=== PATIENT | male | born 1995 | race Caucasian/White ===

== ENCOUNTER → 2024-08-21 | Outpatient (CLI) | payer OTHER, SELFPAY ==
[2024-08-21 10:21] LABS: Absolute Lymphocyte Count 3.04 X10^3/uL (0.83-4.51); Absolute Neutrophil Count 4.6 X10^3/uL (2.0-7.7); Basophil# 0.05 X10^3/uL; Basophil% 0.6 % (0-1); Eosinophil# 0.19 X10^3/uL; Eosinophils% 2.3 % (0-5); Hematocrit 41.4 % (40-54); Hemoglobin 14.1 g/dL (13.0-16.5); Lymphocyte # 3.04 X10^3/ul (0.83-4.51); Lymphocyte % 36.5 % (19-41); Mean Corp Hgb Conc 34.1 g/dL (32-36); Mean Corpuscular Hgb 29.1 pg (27.0-32.0); Mean Corpuscular Volume 85.4 fL (80-94); Mean Platelet Vol. 10.6 fl (6.2-12.0); Monocyte# 0.45 X10^3/uL; Monocyte% 5.4 % (0-10); NRBC Flagged by Analyzer 0 % (0-5); Neutrophil # 4.58 X10^3/uL (2.7-7.7); Platelet Count 280 K/mm3 (150-450); RBC Distribution Width CV 12.2 % (11.6-14.6); RET-HE 32.9 pg (30-35); Red Blood Count 4.85 M/mm3 (4.6-6.2); Reticulocyte Count 1.52 % (0.5-1.5); White Blood Count 8.3 K/mm3 (4.4-11.0)
[2024-08-21 10:27] LABS: Erythrocyte Sedimentation Rate 3 mm/hr (0-20)
[2024-08-21 11:01] LABS: Vitamin B12 748 pg/mL (211-911); Vitamin D,25 Hydroxy 13.2 ng/mL
[2024-08-21 11:17] LABS: CRP < 2.90 mg/L (0.0-3.0); Iron 81 ug/dL (65-175); Iron Binding Capacity,Total 388 ug/dL (250-450); LDH 165 U/L (87-241)
[2024-08-26 19:07] LABS: ACCA 6 units (0-90); ALCA 27 units (0-60); AMCA 11 units (0-100); Albumin 4.3 g/dL (2.9-4.4); Alpha-1-Globulins 0.3 g/dL (0.0-0.4); Alpha-2-Globulins 0.8 g/dL (0.4-1.0); Angiotensin Convert Enzyme 39 U/L (14-82); Anti-Smooth Muscle ABS 6 Units (0-19); Cytoplasmic Ab (C-ANCA) <1:20 titer (Neg:<1:20); Endomysial Antibody IgA Negative (Negative); Gamma Globulin 1.2 g/dL (0.4-1.8); HEPATITIS B SURFACE AG Negative (Negative); Hep C Antibodies Non Reactive (Non Reactive); Hepatitis A IgM Antibody Negative (Negative); Hepatitis B Core AB IgM Negative (Negative); Immunoglobulin A 292 mg/dL (90-386); Immunoglobulin E 132 IU/mL (6-495); Immunoglobulin G 1118 mg/dL (603-1613); Immunoglobulin M 104 mg/dL (20-172); PROEL- TOTAL PROTEIN 7.9 g/dL (6.0-8.5); Perinuclear Ab (P-ANCA) <1:20 titer (Neg:<1:20); QNTFERON TB Mitogen Value > 10.00 IU/mL (.); QNTFERON TB Nil Value 0 IU/mL (.); QNTFERON TB1+ Ag Value 0 IU/mL (.); QNTFERON TB2+ Ag Value 0 IU/mL (.); QNTIFERON TB Positive Criteria Negative (Negative); gASCA 14 units (0-50); t-Transglutaminase IgA <2 U/mL (0-3)
[2024-08-28 01:08] LABS: Anti-Mitochondrial AB <20.0 Units (0.0-20.0); Beef <0.10 kU/L (Class 0); Chocolate <0.10 kU/L (Class 0); Codfish <0.10 kU/L (Class 0); Corn <0.10 kU/L (Class 0); Egg, Whole <0.10 kU/L (Class 0); Milk (Cow) <0.10 kU/L (Class 0); Mussels <0.10 kU/L (Class 0); Peanut <0.10 kU/L (Class 0); Pork <0.10 kU/L (Class 0); Salmon <0.10 kU/L (Class 0); Shrimp <0.10 kU/L (Class 0); Soybean <0.10 kU/L (Class 0); Tuna <0.10 kU/L (Class 0); Vitamin D 1,25-Dihydroxy 51.7 pg/mL (24.8-81.5); Wheat 0.12 kU/L (Class 0/I)
== END | disposition home or self-care (01) ==
PROVIDERS: PCP Family Medicine; Referring Provider Internal Medicine Gastroenterology; Visit Provider Internal Medicine Gastroenterology
DX: K50.90 Crohn's disease, unspecified, without complications (principal)
CPT/HCPCS: 36415; 80074; 82164; 82306; 82607; 82652; 82746; 82784; 82785; 83516; 83540; 83550; 83615; 84165; 84443; 85025; 85045; 85652; 86003; 86005; 86036; 86037; 86140; 86255; 86334; 86480; 86671

== ENCOUNTER → 2024-08-26 | Outpatient (CLI) | payer OTHER, SELFPAY ==
[2024-08-31 22:07] LABS: Calprotectin, Stool 31 ug/g (0-120)
== END | disposition home or self-care (01) ==
LOC: LABSPEC 15:23
PROVIDERS: PCP Family Medicine; Referring Provider Internal Medicine Gastroenterology; Visit Provider Internal Medicine Gastroenterology
DX: K58.9 Irritable bowel syndrome, unspecified (principal)
CPT/HCPCS: 83630; 83993